=== PATIENT | male | born 1965 | race Caucasian/White ===

== ENCOUNTER 2017-04-05 12:15 | Emergency (ER) | payer BC ==
[2017-04-05 12:29] VITALS: BP 159/87
[2017-04-05] MEDS ORDERED: Ibuprofen 800 MG Tab PO ONE (12:53)
--- NOTE | 2017-04-05 12:56 | EDM.PDOC ---
Scribed by Whitney Cooper 04/05/17 1254 for Lokesh Pompa MD ED HPI GENERAL MEDICAL PROBLEM - General Chief Complaint: Lower Extremity Injury/Pain Stated Complaint: TABLE FELL ON LEFT ANKLE Time Seen by Provider: 04/05/17 12:17 Source of Information: Reports: Patient, RN, RN Notes Reviewed History Limitations: Reports: No Limitations - History of Present Illness INITIAL COMMENTS - FREE TEXT/NARRATIVE: Complaining of injury to left ankle sustained 2-1/2 hours ago when he dropped a heavy table and it struck him in the left ankle. Denies any other injury. Rates pain 7/10. Pain is better after ankle elicited and immobilized. Pain is worse with movement and weight bearing. Onset: Sudden Quality: Reports: Ache Severity: Moderate Improves with: Reports: Immobilization Worsens with: Reports: None Associated Symptoms: Reports: No Other Symptoms Left Ankle Pain Score (Numeric/FACES): 8 - Related Data Allergies Allergy/AdvReac Type Severity Reaction Status Date / Time No Known Allergies Allergy Verified 04/05/17 12:20 Home Meds: Home Meds . [No Known Home Meds] 04/05/17 [History] Past Medical History Musculoskeletal History: Reports: Osteoarthritis (left knee) - Past Surgical History Musculoskeletal Surgical History: Reports: Other (See Below) (left ankle ORIF in 1982.) Review of Systems - Review of Systems Review Of Systems: ROS reveals no pertinent complaints other than HPI. ED EXAM, GENERAL - Physical Exam Exam: See Below Exam Limited By: No Limitations General Appearance: Alert, WD/WN, No Apparent Distress Head: Atraumatic, Normocephalic Respiratory/Chest: No Respiratory Distress Cardiovascular: Normal Peripheral Pulses (at bilateral lower extremities.) Back Exam: Normal Inspection, Full Range of Motion, NT Extremities: Other (left ankle tender laterally with mild swelling, painful but full ROM. No visible bruising or deformity. Skin intact. Old surgical scar from ORIF.) Neurological: Alert, Oriented, CN II-XII Intact, Normal Cognition, Normal Gait, Normal Reflexes, No Motor/Sensory Deficits Psychiatric: Normal Affect, Normal Mood Skin Exam: Warm, Dry, Intact, Normal Color, No Rash Course - Vital Signs Last Recorded V/S: Last Vital Signs Temp 37.1 C 04/05/17 12:21 Pulse 119 H 04/05/17 12:21 Resp 18 04/05/17 12:21 BP 159/87 H 04/05/17 12:21 Pulse Ox 99 04/05/17 12:21 - Orders/Labs/Meds Orders: Active Orders 24 hr Category Date Time Status Roque Bandage [RC] ONETIME Care 04/05/17 12:54 Active Ankle Min 3V Lt [CR] Urgent Exams 04/05/17 12:25 Taken DME for Discharge [COMM] Routine Oth 04/05/17 12:54 Ordered Meds: Medications Discontinued Medications Generic Name Dose Route Start Last Admin Trade Name Krzysztof PRN Reason Stop Dose Admin Ibuprofen 800 mg 04/05/17 12:53 Motrin PO 04/05/17 12:54 ONETIME ONE - Radiology Interpretation Free Text/Narrative:: X-ray left ankle: No fracture. Intact surgical hardware. See rad report. Departure - Departure Time of Disposition: 12:49 Disposition: Home, Self-Care 01 Condition: Good Clinical Impression: Left ankle sprain Qualifiers: Encounter type: initial encounter Involved ligament of ankle: unspecified ligament Qualified Code(s): S93.402A - Sprain of unspecified ligament of left ankle, initial encounter Contusion of left ankle Qualifiers: Encounter type: initial encounter Qualified Code(s): S90.02XA - Contusion of left ankle, initial encounter - Discharge Information Instructions: Ankle Sprain, [id number], Contusion, [id number] Forms: ED Department Discharge Additional Instructions: Rest, ice and elevate. ROQUE wrap and crutches as needed for 7-10 days. Can do partial weight bearing as tolerated. Follow up in clinic in 7-10 days for recheck by your primary doctor. - My Orders Last 24 Hours: My Active Orders 04/05/17 12:25 Ankle Min 3V Lt [CR] Urgent 04/05/17 12:54 Roque Bandage [RC] ONETIME DME for Discharge [COMM] Routine - Assessment/Plan Last 24 Hours: My Active Orders 04/05/17 12:25 Ankle Min 3V Lt [CR] Urgent 04/05/17 12:54 Roque Bandage [RC] ONETIME DME for Discharge [COMM] Routine I have read and agree with the documentation that has been completed regarding this visit. By signing this record, I attest that the documentation was completed in my physical presence and is an accurate record of the encounter.
== END 2017-04-05 13:08 | disposition home or self-care (01) ==
LOC: DL.ED 12:15
DX: S93.402A Sprain of unspecified ligament of left ankle, initial encounter (principal); W20.8XXA Other cause of strike by thrown, projected or falling object, initial encounter
CPT/HCPCS: 73610; 99283; A9270

== ENCOUNTER 2018-03-11 07:07 | Emergency (ER) | payer SELFPAY ==
--- NOTE | 2018-03-11 07:13 | EDM.PDOC ---
ED HPI GENERAL MEDICAL PROBLEM - General Chief Complaint: ENT Problem Stated Complaint: TOOTH PAIN [id number] Time Seen by Provider: 03/11/18 07:09 Source of Information: Reports: Patient, RN, RN Notes Reviewed History Limitations: Reports: No Limitations - History of Present Illness INITIAL COMMENTS - FREE TEXT/NARRATIVE: Presents to ER by POV with c/o dental pain with possible abscess. Last evening pt was feeling the painful tooth with his tongue and a piece of the tooth broke off. Pt states his jaw and face were swollen when he woke up this morning. Denies fever or chills. Onset: Gradual Duration: Constant, Getting Worse Location: Reports: Other (dental/face) Quality: Reports: Ache, Throbbing Severity: Severe Improves with: Reports: None Worsens with: Reports: Eating Associated Symptoms: Reports: No Other Symptoms - Related Data Allergies Allergy/AdvReac Type Severity Reaction Status Date / Time No Known Allergies Allergy Verified 03/11/18 07:13 Home Meds: Home Meds . [No Known Home Meds] 04/05/17 [History] Past Medical History Musculoskeletal History: Reports: Osteoarthritis (left knee) - Past Surgical History Musculoskeletal Surgical History: Reports: Other (See Below) (left ankle ORIF in 1982.) Social & Family History - Family History Family Medical History: Noncontributory - Caffeine Use Caffeine Use: Reports: None - Living Situation & Occupation Living situation: Reports: with Family ED ROS ENT - Review of Systems Review Of Systems: ROS reveals no pertinent complaints other than HPI. ED EXAM, ENT - Physical Exam Exam: See Below Exam Limited By: No Limitations General Appearance: Alert, WD/WN, No Apparent Distress Eye Exam: Bilateral Eye: Normal Inspection Ears: Hearing Grossly Normal Nose: Normal Inspection Mouth/Throat: Normal Lips, Normal Oropharynx, Dental Abcess (early dental abscess with gingival swelling, non-fluctuant adj. to 1st left mandibular molar) , Dental Pain, Dental Tenderness (left mandibular pre-molar/molar region), Gum Swelling. No: Normal Teeth, Bleeding Head: Atraumatic, Normocephalic Neck: Normal Inspection. No: Lymphadenopathy (L), Lymphadenopathy (R) Respiratory/Chest: No Respiratory Distress Neurological: Alert, Normal Cognition, No Motor/Sensory Deficits Psychiatric: Normal Mood Skin: Warm, Dry, Intact, Normal Color, No Rash. No: Erythema Course - Orders/Labs/Meds Orders: Active Orders 24 hr Category Date Time Status Clindamycin HCl [Cleocin] Med 03/11/18 07:19 Once 300 mg PO ONETIME ONE Ibuprofen [Motrin] Med 03/11/18 07:19 Once 800 mg PO ONETIME ONE Lidocaine 2% [Xylocaine 2% Viscous] Med 03/11/18 07:20 Once 15 ml PO ONETIME ONE Departure - Departure Time of Disposition: 07:24 Disposition: Home, Self-Care 01 Condition: Good Clinical Impression: Dental abscess Fracture of tooth Qualifiers: Encounter type: initial encounter Fracture type: closed Qualified Code(s): S02.5XXA - Fracture of tooth (traumatic), initial encounter for closed fracture - Discharge Information Instructions: Dental Abscess, [id number] Forms: ED Department Discharge Additional Instructions: Rx: Clindamycin 300mg Rx: Naprosyn 500mg Rx: Viscous Lidocaine 2% Follow up with dentist March 13. - My Orders Last 24 Hours: My Active Orders 03/11/18 07:19 Clindamycin HCl [Cleocin] 300 mg PO ONETIME ONE Ibuprofen [Motrin] 800 mg PO ONETIME ONE 03/11/18 07:20 Lidocaine 2% [Xylocaine 2% Viscous] 15 ml PO ONETIME ONE - Assessment/Plan Last 24 Hours: My Active Orders 03/11/18 07:19 Clindamycin HCl [Cleocin] 300 mg PO ONETIME ONE Ibuprofen [Motrin] 800 mg PO ONETIME ONE 03/11/18 07:20 Lidocaine 2% [Xylocaine 2% Viscous] 15 ml PO ONETIME ONE
[2018-03-11] MEDS ORDERED: Ibuprofen 800 MG Tab PO ONE (07:19)
[2018-03-11] MEDS ORDERED: Clindamycin HCl 150 MG Cap PO ONE (07:19)
[2018-03-11 07:20] VITALS: BP 110/77
[2018-03-11] MEDS ORDERED: Lidocaine 2% Viscous Solution 15 ML Cup PO ONE (07:20)
== END 2018-03-11 07:35 | disposition home or self-care (01) ==
LOC: DL.ED 07:07
DX: K04.7 Periapical abscess without sinus (principal); K03.81 Cracked tooth
CPT/HCPCS: 99282; A9270